=== PATIENT | female | born 1980 | race Two or more races ===

== ENCOUNTER 2018-09-05 12:17 | Emergency (ER) | payer BC, OTHER ==
[2018-09-05] MEDS ORDERED: ACETAMINOPHEN 1000 MG/100 ML VIAL (NON FORMULARY) IVPB ONE (12:28)
[2018-09-05] MEDS ORDERED: SODIUM CHLORIDE 1,000 ML IV STA (12:28)
[2018-09-05 12:30] VITALS: TEMP 98.3; BMI 25.8
--- NOTE | 2018-09-05 12:32 | PDOC ---
Rapid Medical Evaluation Chief Complaint: Pain Time Seen by Provider: 09/05/18 12:27 Medical Evaluation: Allergies Allergy/AdvReac Type Severity Reaction Status Date / Time No Known Allergies Allergy Verified 09/05/18 12:23 09/05/18 12:30 I have performed a brief in-person evaluation of this patient. The patient presents with a chief complaint of: epigastric pain after trip to [place]. 7wks . 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 Discharge Disposition - Diagnosis Abdominal pain - Referrals - Patient Instructions - Post Discharge Activity
[2018-09-05] MEDS ORDERED: ACETAMINOPHEN INJECTION 100 ML IVPB ONE (12:36)
[2018-09-05] MEDS ORDERED: MAG HYDROX/AL HYDROX/SIMETH 30 ML UNIT-DOSE CUP PO ONE (13:13)
[2018-09-05 13:21] LABS: BASO % 0.4 % (0-2.0); EOS % 2.1 % (0-4.5); HEMATOCRIT 39.4 % (32.4-45.2); HEMOGLOBIN 13.2 GM/dL (10.7-15.3); LYMPH % 34.1 % (8-40); MCHC 33.6 g/dl (32.0-36.0); MEAN CELL VOLUME 86.2 fl (80-96); MEAN PLT VOLUME 7.1 fl (7.5-11.1); MONO % 7.7 % (3.8-10.2); NEUT % 55.7 % (42.8-82.8); PLATELET COUNT 288 K/MM3 (134-434); RBC 4.57 M/mm3 (3.60-5.2); WHITE BLOOD COUNT 3.9 K/mm3 (4.0-10.0)
[2018-09-05 13:58] LABS: ALBUMIN 3.4 g/dl (3.4-5.0); BILIRUBIN,TOTAL 0.3 mg/dL (0.2-1); BLOOD UREA NITROGEN 7.2 mg/dL (7-18); CREATININE 0.6 mg/dL (0.55-1.3); POTASSIUM 4.3 mmol/L (3.5-5.1); TOT PROT 6.2 g/dl (6.4-8.2)
[2018-09-05] MEDS ORDERED: PYRIDOXINE HCL (B-6) 50 MG TABLET (FP) PO ONE (14:23)
[2018-09-05 14:34] LABS: PH,URINE 7.5 (5.0-8.0); URINE APPEARANCE CLEAR; URINE BILIRUBIN NEGATIVE (NEGATIVE); URINE COLOR YELLOW; URINE GLUCOSE (UA) NEGATIVE (NEGATIVE); URINE KETONE NEGATIVE (NEGATIVE); URINE LEUK ESTERASE NEGATIVE (NEGATIVE); URINE NITRITE NEGATIVE (NEGATIVE); URINE PROTEIN NEGATIVE (NEGATIVE); URINE UROBILINOGEN 0.2 mg/dL (0.2-1.0)
[2018-09-05 15:39] VITALS: BP 110/68; PULSE 56
--- NOTE | 2018-09-05 16:16 | PDOC ---
Documentation entered by Carin Harris SCRIBE, acting as scribe for Eli Arriaga MD. Eli Arriaga MD: This documentation has been prepared by the Kimberly wade Mackenzie, SCRIBE, under my direction and personally reviewed by me in its entirety. I confirm that the documentation accurately reflects all work , treatment, procedures, and medical decision making performed by me. History of Present Illness - General Chief Complaint: Pain Stated Complaint: 6 WKS/ ABD. PAIN Time Seen by Provider: 09/05/18 12:27 History Source: Patient Exam Limitations: No Limitations - History of Present Illness Initial Comments: The patient is a 37 year old 6 week () female with a significant past medical history of an intrauterine fibroid who presents to the emergency department with 3 days of intermittent epigastric abdominal pain. Patient states the pain at times radiates to the right upper abdominal quadrant. She also reports poor appetite, nausea, fatigue, and alternating diarrhea and constipation (NB) for 2 weeks. She is concerned because she feels nauseous all day but thought "morning sickness" was only supposed to be in the morning. Denies vomiting. Patient returned from [place] 4 days ago and is concerned she caught something there and requests testing for it. Denies recent diarrhea. Last BM was yesterdya. She was seen by her primary doctor, Dr. Say Fitzgerald this week who referred her for GB ultrasound and TVUS. She states due to the persistence of the epigastric pain, she presented to the ED today. Denies lower abdominal pain or cramping. Denies vaginal bleeding or spotting. The patient denies chest pain, SOB. Denies fever, chills. Denies headache, focal weakness/numbness, dizziness Denies dysuria, frequency, urgency and hematuria. 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 No weakness. HEAD, EYES, EARS, NOSE AND THROAT: No change in vision. No ear pain or discharge. No sore throat. CARDIOVASCULAR: No chest pain or shortness of breath. RESPIRATORY: No cough, wheezing, or hemoptysis. GASTROINTESTINAL:(+)Epigastric pain. (+)Diarrhea. (+)Constipation. No nausea or vomiting. GENITOURINARY: No dysuria, frequency, or change in urination. MUSCULOSKELETAL: No joint or muscle swelling or pain. No neck/back pain. SKIN: No rash NEUROLOGIC: No headache, vertigo, loss of consciousness, or change in strength/ sensation. ENDOCRINE: No increased thirst. HEMATOLOGIC/LYMPHATIC: No anemia, easy bleeding, or history of blood clots. ALLERGIC/IMMUNOLOGIC: No hives or skin allergy. *Physical Exam - Vital Signs Last Vital Signs Temp Pulse Resp BP Pulse Ox 98.3 F 83 20 109/71 100 09/05/18 12:23 09/05/18 12:23 09/05/18 12:23 09/05/18 12:23 09/05/18 12:23 - Physical Exam Comments: 09/05/18 15:56 GENERAL: Awake, alert, and fully oriented, in no acute distress HEAD: No signs of trauma EYES: EOMI, sclera anicteric, conjunctiva clear ENT: Oropharynx clear without exudates. Moist mucosa NECK: Normal ROM, supple, no lymphadenopathy, JVD, or masses LUNGS: Breath sounds equal, clear to auscultation bilaterally. No wheezes, and no crackles HEART: Regular rate and rhythm, normal S1 and S2, no murmurs, rubs or gallops ABDOMEN: Soft, mild epigastric and RUQ ttp, no murphys sign, normoactive bowel sounds. No guarding, no rebound. No masses EXTREMITIES: Normal range of motion, no edema. No clubbing or cyanosis. No cords, erythema, or tenderness. WWP NEUROLOGICAL: Normal speech, cranial nerves intact, equal strength and sensation b/l SKIN: Warm, Dry, normal turgor, no rashes or lesions noted. Heart Score/ECG Review #1 09/05/18 16:01 Twelve-lead EKG was performed and reviewed by me. Normal sinus rhythm, rate 68. Normal axis with sinus arrhthmia 2/2 resp variation. No SAVANAH or [facility] ED Treatment Course - LABORATORY CBC & Chemistry Diagram: 09/05/18 13:00 09/05/18 13:00 - ADDITIONAL ORDERS Additional order review: Laboratory Results 09/05/18 09/05/18 09/05/18 13:50 13:00 13:00 Sodium 140 Potassium 4.3 Chloride 111 H Carbon Dioxide 27 Anion Gap 2 L BUN 7.2 Creatinine 0.6 Est GFR (CKD-EPI)AfAm 135.91 Est GFR (CKD-EPI)NonAf 117.26 Random Glucose 87 Calcium 9.0 Total Bilirubin 0.3 AST 14 L ALT 17 Alkaline Phosphatase 35 L Total Protein 6.2 L Albumin 3.4 Lipase 193 Beta HCG, Quant 42569.8 Urine Color Yellow Urine Appearance Clear Urine pH 7.5 Ur Specific [place] 1.011 Urine Protein Negative Urine Glucose (UA) Negative Urine Ketones Negative Urine Blood Negative Urine Nitrite Negative Urine Bilirubin Negative Urine Urobilinogen 0.2 Ur Leukocyte Esterase Negative Blood Type O POSITIVE Antibody Screen Negative 09/05/18 13:00 RBC 4.57 MCV 86.2 MCHC 33.6 RDW 13.0 MPV 7.1 L Neutrophils % 55.7 Lymphocytes % 34.1 Monocytes % 7.7 Eosinophils % 2.1 Basophils % 0.4 - Medications Given in the ED: ED Medications Discontinued Medications Generic Name Dose Route Start Last Admin Trade Name Kieran PRN Reason Stop Dose Admin Acetaminophen 1,000 mg 09/05/18 12:28 09/05/18 13:07 Ofirmev Injection - IVPB 09/05/18 12:29 1,000 mg ONCE ONE Administration Sodium Chloride 1,000 mls @ 1,000 mls/hr 09/05/18 12:28 09/05/18 13:07 Normal Saline - IV 09/05/18 13:27 1,000 mls/hr ASDIR STA Administration Medical Decision Making - Medical Decision Making 09/05/18 16:13 37yo F currently 6 weeks presents to the ED with epigastric pain, nausea, fatigue, anorexia, and alternating constipation and diarrhea. Vitals wnl Exam with epigastric and RUQ ttp Labs wnl, B-HCG consistent with 6-8 week GB US unremarkable No fevers, systemic signs of infection Likely gastritis and sxs consistent with first trimester Pt is well appearing, requesting to eat states she is hungry Feeling better She has f/u with OB next week She is clinically stable for DC home I discussed the physical exam findings, ancillary test results and final diagnoses with the patient. I answered all of the patient's questions. The patient was satisfied with the care received and felt comfortable with the discharge plan and treatment plan. The patient will call their primary care physician within 24 hours to arrange follow-up and will return to the Emergency Department with any new, persistent or worsening symptoms. *DC/Admit/Observation/Transfer Diagnosis at time of Disposition: Abdominal pain, Anorexia, Diarrhea - Discharge Dispostion Disposition: HOME Condition at time of disposition: Improved Decision to Admit order: No - Prescriptions Prescriptions: Pyridoxine HCl (Vitamin B6) [Vitamin B-6] 25 mg PO Q6H PRN #20 tablet PRN Reason: Nausea - Referrals Referrals: Say Fitzgerald MD [Primary Care Provider] - - Patient Instructions Printed Discharge Instructions: Medications and , Diet, DI for -- Discomforts and Remedies, DI for Abdominal Pain -- Early Additional Instructions: Your blood work and ultrasound of your abdomen today were normal. Your B-HCG level was at the level expected for a 6-8 week . Follow up with your [facility] doctor next week as scheduled. Take your multivitamin daily. For nausea, I have prescribed Vitamin B6 which you can take as needed for epigastric discomfort, nausea and poor appetite Try to eat small, frequent meals throughout the day as opposed to large meals. Return to the emergency department if you have any new, worsening your concerning symptoms. It was a pleasure to take care of you in the emergency department today, we hope you feel better soon! -Dr. Arriaga - Post Discharge Activity - Attestations Physician Attestion: 09/05/18 15:44 I, Dr. Eli Arriaga MD, attest that this document has been prepared under my direction and personally reviewed by me in its entirety. I further attest, that it accurately reflects all work, treatment, procedures and medical decision -making performed by me.
--- NOTE | 2018-09-06 08:14 | EKG ---
Test Reason : Blood Pressure : / mmHG Vent. Rate : 068 BPM Atrial Rate : 068 BPM P-R Int : 152 ms QRS Dur : 092 ms QT Int : 382 ms P-R-T Axes : 075 069 054 degrees QTc Int : 406 ms NORMAL SINUS RHYTHM WITH SINUS ARRHYTHMIA NORMAL ECG NO PREVIOUS ECGS AVAILABLE Confirmed by DEVONTE MCLAUGHLIN, ALYSSA ([id number]) on 09/06/2018 8:14:26 AM Referred By: Confirmed By:ALYSSA WHITNEY MD
== END 2018-09-05 15:57 | disposition home or self-care (01) ==
LOC: JER 12:17
PROC: 3E033GC Introduction of Other Therapeutic Substance into Peripheral Vein, Percutaneous Approach (ICD-10-PCS; principal; 2018-09-05)
DX: O26.891 Other specified pregnancy related conditions, first trimester (principal); R10.13 Epigastric pain; F50.89 Other specified eating disorder; Z3A.01 Less than 8 weeks gestation of pregnancy
CPT/HCPCS: 36415; 76705-TC; 80053; 81003; 83690; 84702; 85025; 86850; 86900; 86901; 87086; 93005; 93010; 99282-25; J0131; J7030

== ENCOUNTER 2019-03-16 08:07 | Inpatient (IN) | payer BC, OTHER ==
[2019-03-16 09:51] VITALS: BMI 35.7
[2019-03-16] MEDS ORDERED: morphine SULFATE/PF 0.5 MG/ML (2cc Syringe - QUVA) ONE (10:23)
--- NOTE | 2019-03-16 10:32 | HP ---
Past Medical History - Primary Care Physician PCP:: Bonilla Browning - Admission Chief Complaint: 38yo P0 with pregancy at EGA 34w4d admitted for primary C/S delivery due to IUGR. 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: Alzheimer's, CVA, Dementia, Migraine, Multiple Sclerosis, Peripheral Neuropathy, Parkinson's, Seizure, Syncope, TIA, Vertigo, Other Cardiovascular: No: AFIB, Aneurysm, Aortic Insufficiency, Aortic Stenosis, CAD, CHF, Deep Vein Thrombosis, HTN, Hyperlipdemia, AL, Mitral Insufficiency, Mitral Stenosis, Murmur, Pulmonary Hypertension, Other Pulmonary: No: Asthma, Bronchitis, Cancer, COPD, O2 Dependent, Pneumonia, Previously Intubated, Pulmonary Embolus, Pulmonary Fibrosis, Sleep Apnea, Other Gastrointestinal: No: Ascites, Cancer, Constipation, Crohn's Disease, Diverticulitis, Diverticulosis, Esophageal Varices, Gastritis, GERD, GI Bleed, Hemorrhoids, Hiatal Hernia, Inflamatory Bowel Disease, Irritable Bowel Disease, Pancreatitis, Peptic Ulcer Disease, Ulcerative Colitis, Other Hepatobiliary: No: Cirrhosis, Cholelithiasis, Cholecystitis, Choledocholithiasis , Hepatitis A, Hepatitis B, Hepatitis C, Other Renal/: No: Renal Failure, Renal Inusuff, BPH, Cancer, Hematuria, Hemodialysis , Neurogenic Bladder, Renal Calculi, UTI, Other Reproductive: Yes: Fibroids ...: 1 ...Para: 0 ...Term: 0 ...: 0 ...Spon : 0 ...Induced : 0 ...Multiple Gestation: 0 ... Weeks Gestation by Dates: 34.4 ...EDC by Dates: 04/23/19 Heme/Onc: No: Anemia, B12 Deficiency, Bleeding Disorder, Cancer, Current Chemotherapy, Current Radiation Therapy, Hemochromatosis, Hypercoaguable State, Myeloproliferative Synd, Sickle Cell Disease, Sickle Cell Trait, Thrombocytopenia, Other Infectious Disease: No: AIDS, C-Diff, Herpes Zoster, HIV, MRSA, STD's, Tuberculosis, VREF, Other Psych: No: Addictions, Anxiety, Bipolar, Depression, Panic, Psychosis, Schizophrenia, Other Musculoskeletal: No: Bursitis, Chronic low back pain, Hemiparesis, Hemiplegia, Osteoarthritis, Paraplegia, Other Rheumatology: No: Fibromyalgia, Gout, Lupus, Rheumatoid Arthritis, Sarcoidosis, Vasculitis, Other ENT: No: Allergic Rhinitis, Sinusitis, Other Endocrine: No: Jf's Disease, Kody's Disease, Diabetes Insipidus, Diabetes Mellitus, Hyperparathyroidism, Hyperthyroidism, Hypothyroidism, Osteopenia, SIADH, Other Dermatology: No: Basal Cell, Cellulitis, Eczema, Melanoma, Psoriasis, Squamous Cell, Other - Past Surgical History Past Surgical History: Yes: None Hx Myomectomy: No Hx Transabdominal Cerclage: No - Advance Directives Advance Directives: No: Living Will, Health Care Proxy, DNR, Organ Donor, Tissue Donor, MOLST - Smoking History Smoking history: Never smoked Have you smoked in the past 12 months: No - Alcohol/Substance Use Hx Alcohol Use: No History of Substance Use: reports: None - Social History Usual Living Arrangement: Yes: With Spouse Do you think of yourself as: Straight/Heterosexual ADL: Independent 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 History of Recent Travel: No Home Medications - Allergies Allergies/Adverse Reactions: Allergies Allergy/AdvReac Type Severity Reaction Status Date / Time No Known Allergies Allergy Verified 03/16/19 09:31 - Home Medications Home Medications: Ambulatory Orders Vit No.129/Iron/Folic [ One Daily Tablet] 1 tab PO DAILY Family Medical History Family History: Unremarkable Review of Systems - Review of Systems Constitutional: reports: No Symptoms Eyes: reports: No Symptoms HENT: reports: No Symptoms Neck: reports: No Symptoms Cardiovascular: reports: No Symptoms Respiratory: reports: No Symptoms Gastrointestinal: reports: No Symptoms Genitourinary: reports: No Symptoms Breasts: reports: No Symptoms Reported Musculoskeletal: reports: No Symptoms Integumentary: reports: No Symptoms Neurological: reports: No Symptoms Endocrine: reports: No Symptoms Hematology/Lymphatic: reports: No Symptoms Psychiatric: reports: No Symptoms Pain Intensity: 0 Physical Exam - Maternity Constitutional: Yes: No Distress, Calm, Obese Eyes: Yes: WNL, Conjunctiva Clear, EOM Intact HENT: Yes: WNL, Atraumatic, Normocephalic Neck: Yes: WNL, Supple, Trachea Midline Cardiovascular: Yes: WNL, Regular Rate and Rhythm Breast(s): Yes: WNL - Abdominal Exam/OB Fundal Height: 36 Number of Fetuses: Single Presentation: Vertex Contractions: No Intensity: Unaware Monitor Mode: External Heart Rate (range): 135 Heart Rate Location: Midline Category: I Accelerations: Non-Uniform Decelerations: None - Vaginal Exam/OB Vaginal Bleediing: No Speculum Exam: No Dilatation (cm): 0 Effacement (%): 0 Amniotic Membrane Status: Intact Presentation: Vertex/Position Station: -4 - Physical Exam Musculoskeletal: Yes: WNL Extremities: Yes: WNL Edema: No Integumentary: Yes: WNL Deep Tendon Reflex Grade: Normal +2 ...Motor Strength: WNL Psychiatric: Yes: WNL, Alert, Oriented Hemorrhage Risk Assessment - Risk Factors Medium Risk Factors: Yes: Large myomas High Risk Factors: Yes: None Risk Score: 1 Risk Level: Medium Risk Imaging - Results Ultrasound: Report Reviewed Assessment/Plan 38yo P0 with pregancy at EGA 34w4d admitted for primary C/S delivery due to IUGR. MFM consulation to proceed with delivery. Pt completed a course of steroids. The decision was made to proceed with delivery by C/S due to IUGR and unfavorable cervical exam. We discussed the risks and benefits of C/S at length, including but not limited to scarring, pain, bleeding , infection, injury to underlying organs and structures, need for additional surgery to repair/treat any problems or complications, complications/ injuries, hysterectomy, myomectomy, etc. The pt verbalized her understanding and requested to proceed with surgery. The pt is aware that all surgeries have risks and no guarantees can be provided.
[2019-03-16] MEDS ORDERED: ELECTROLYTE-148 SOLN 1,000 ML IV SCH (10:45)
[2019-03-16] MEDS ORDERED: ONDANSETRON 4 MG/2 ML VIAL IVPUSH PRN (11:31)
[2019-03-16] MEDS ORDERED: WITCH HAZEL 50% (TUCKS) 40 PAD/JAR PAD TP PRN (12:18)
[2019-03-16] MEDS ORDERED: METHYLERGONOVINE MALEATE 0.2 MG/1 ML AMP IM PRN (12:18)
[2019-03-16] MEDS ORDERED: BENZOCAINE 20% 57 GM BOTTLE TP PRN (12:18)
[2019-03-16] MEDS ORDERED: IBUPROFEN 800 MG/8 ML IJ IVPB PRN (12:18)
--- NOTE | 2019-03-16 12:26 | OP ---
Operative Note - Note: Operative Date: 03/16/19 Pre-Operative Diagnosis: at EGA 34w4d. IUGR, AMA, maternal obesity, fibroids. Operation: Primary LT C/S Findings: Live baby boy in VTX presentation. No meconium in amniotic fluid. Nuchal cord x 2. A large fundal intramural myoma and 2 smaller posterior myomas. Normal FT's and ovaries Post-Operative Diagnosis: Same as Pre-op Surgeon: Bonilla Browning Organizational Consultant: Keisha Godoy Anesthesiologist/VENDING STAND SUPERVISOR: Erica Cao Anesthesia: Spinal Specimens Removed: Placenta Estimated Blood Loss (mls): 700 Drains & Tubes with Location: Weiss cath Drains, Volume Out (mls): 300 Blood Volume Replaced (mls): 0 Fluid Volume Replaced (mls): 1,400 Operative Report Dictated: Yes
[2019-03-16] MEDS: OXYTOCIN 20 UNITS in 0.9% NS 20 UNIT/1,000 ML INFUS.BAG IV SCH (12:35)
[2019-03-16] MEDS ORDERED: CEFAZOLIN 1 GM in DEXTROSE 5%-WATER - 50 ML IVPB SCH (18:00)
[2019-03-16] MEDS: CEFAZOLIN 1 GM/D5W 1 GM/50 ML BAG IVPB SCH (18:19)
--- NOTE | 2019-03-16 19:01 | OP ---
DATE OF OPERATION: 03/16/2019 PREOPERATIVE DIAGNOSIS: at estimated gestational age of 34 weeks and 4 days, intrauterine growth restriction, advanced maternal age, maternal obesity, uterine fibroids. POSTOPERATIVE DIAGNOSIS: at estimated gestational age of 34 weeks and 4 days, intrauterine growth restriction, advanced maternal age, maternal obesity, uterine fibroids. Delivered. PROCEDURE: Primary low transverse section via Pfannenstiel skin incision. SURGEON: Bonilla Browning MD. ANESTHESIOLOGIST: Keisha Godoy MD. ANESTHESIOLOGIST: Erica Cao DO. ANESTHESIA: Spinal. COMPLICATIONS: None. PATHOLOGY: Placenta. FINDINGS: Live baby boy in vertex presentation, no meconium in amniotic fluids, a nuchal cord wrapped around twice. There was a large fundal intramural myoma measuring approximately 8 to 10 cm as well as 2 smaller posterior myomas ranging from 2 to 3 cm. Normal fallopian tubes bilaterally. Normal ovaries bilaterally. ESTIMATED BLOOD LOSS: 700 mL. URINE OUTPUT: 300 mL of clear urine at the end of the procedure. INTRAVENOUS FLUIDS: 1400 mL. PROCEDURE: The patient was met preoperatively. Risks, benefits, and alternatives of surgery were discussed in detail. All questions were answered. The consent form was reviewed and patient verbalized her understanding. The consent form was signed, and the patient requested to proceed with the surgery. The patient was brought to the OR with the IV running. She was placed on the surgical table in a sitting position. The spinal anesthesia was placed without difficulty. The patient was then positioned on a surgical table in the supine position with leftward tilt. She was prepped and draped in the usual sterile fashion. A Weiss catheter was left to drain to gravity. A timeout procedure was conducted as per protocol. The surgeons then proceeded with the operation. A Pfannenstiel skin incision was made with the knife approximately 2 cm above the pubic symphysis. The incision was taken down to the level of fascia with the knife. The fascia was incised in the midline. The incision was extended bilaterally with [place] scissors. The fascia was then dissected away from the rectus muscles superiorly and inferiorly using sharp and blunt dissection. The rectus muscles were in the midline bluntly. The peritoneum was identified, tented up with 2 [place]ita clamps and entered sharply. The peritoneal incision was then extended superiorly and inferiorly. The bladder peritoneum was dissected away from the lower uterine segment. The bladder was dissected away from the lower uterine segment using sharp and blunt dissection. The bladder was then reflected downwards using [place] retractor. The uterus was incised transversely in the lower uterine segment. The incision was then extended bilaterally. The baby was delivered from vertex presentation and without complications. The nuchal cord was released without difficulty. The umbilical cord was clamped and cut. The baby was crying spontaneously and was handed to the waiting upholstery estimator. A segment of the umbilical cord was secured for blood gas. The placenta was removed manually and without complications. The uterus was cleared of all clots and debris using laparotomy laps. The uterine incision was repaired using a 0 Biosyn suture with the running, locking stitch. Good hemostasis was noted. The uterine incision was then imbricated using a secondary layer of closure with a 0 Biosyn suture. Once again, good hemostasis was assured. The bladder peritoneum was then reapproximated using a 0 Biosyn suture. Once again, good hemostasis was confirmed. The operative site was irrigated using copious amounts of normal saline. Once the saline was aspirated, good hemostasis was confirmed. The parietal peritoneum was closed using a 2-0 chromic suture. The rectus muscles were approximated in the midline using several interrupted 2-0 chromic suture. The fascia was closed using a 0 Vicryl suture with a running stitch. Good hemostasis and approximation were confirmed. The subcutaneous adipose tissues and Jan fascia were approximated using several interrupted 2-0 chromic sutures. The skin was closed using a 4-0 Biosyn suture in a subcutaneous stitch. Sponge, lap, needle and instrument counts were correct. The patient was transferred to recovery room in stable condition. Fortino [id number]
[2019-03-17] MEDS: CEFAZOLIN 1 GM/D5W 1 GM/50 ML BAG IVPB SCH ×2 (02:06→09:29)
[2019-03-17] MEDS: OXYTOCIN 20 UNITS in 0.9% NS 20 UNIT/1,000 ML INFUS.BAG IV SCH (03:50)
[2019-03-17] MEDS: SIMETHICONE 80 MG TAB.CHEW (FP) PO PRN ×3 (05:26→16:49)
[2019-03-17] MEDS: IBUPROFEN 600 MG TABLET (FP) PO PRN ×3 (05:26→16:49)
--- NOTE | 2019-03-17 07:10 | PN ---
Post Progress Note - Subjective Subjective: Patient without acute complaints. Reports tolerating oral intake without nausea or vomiting. Ambulating without dizziness. Denies fevers or chills. Pain well controlled with oral pain medication. /Pumping without difficulty. Passing flatus. Type of Delivery: Primary C/S Vital Signs: Vital Signs Temperature 98.2 F 03/17/19 06:00 Pulse Rate 59 L 03/17/19 06:00 Respiratory Rate 18 03/17/19 06:00 Blood Pressure 131/78 03/17/19 06:00 O2 Sat by Pulse Oximetry (%) 99 03/16/19 13:10 Breast Exam: Yes: Soft Uterus: Yes: Fundus Firm Incision: Yes: Dressing dry and intact Abdomen/GI: Yes: Abdomen soft, Tolerating PO Lochia: Yes: Rubra Lochia, amount: Small Extremities: Yes: Calves non-tender Perineum: Yes: Intact Activity: Ambulating Assessment/Plan 38yo P1 no s/p 1' c/section for sever IUGR @ 34wks VSS, Afebrile h/h pending will follow Hemodynamically stable doing well cont. routine post-op care
[2019-03-17] MEDS: PRENATAL VITAMINS W/ FOLIC ACID TABLET (FP) PO SCH (09:30)
[2019-03-17] MEDS: ENOXAPARIN NA (PORCINE) 40 MG/0.4 ML DISP.SYRIN SQ SCH (09:30)
[2019-03-17 11:51] LABS: BASO % 0.3 % (0-2.0); EOS % 1.7 % (0-4.5); HEMATOCRIT 36.2 % (32.4-45.2); HEMOGLOBIN 12.3 GM/dL (10.7-15.3); MCH 29.2 pg (25.7-33.7); MCHC 33.9 g/dl (32.0-36.0); MEAN CELL VOLUME 86.1 fl (80-96); MEAN PLT VOLUME 7.7 fl (7.5-11.1); PLATELET COUNT 250 K/MM3 (134-434); RDW 13.2 % (11.6-15.6); WHITE BLOOD COUNT 7.8 K/mm3 (4.0-10.0)
[2019-03-17] MEDS: oxyCODONE HCL 5 MG TABLET PO PRN ×2 (11:52→16:50)
[2019-03-17] MEDS ORDERED: BISACODYL 10 MG SUPP.RECT RC PRN (12:18)
[2019-03-18] MEDS: oxyCODONE HCL 5 MG TABLET PO PRN ×3 (01:40→14:38)
[2019-03-18] MEDS: SIMETHICONE 80 MG TAB.CHEW (FP) PO PRN ×3 (01:40→14:38)
[2019-03-18] MEDS: IBUPROFEN 600 MG TABLET (FP) PO PRN ×3 (01:41→14:38)
[2019-03-18] MEDS: PRENATAL VITAMINS W/ FOLIC ACID TABLET (FP) PO SCH (09:52)
[2019-03-18] MEDS: ENOXAPARIN NA (PORCINE) 40 MG/0.4 ML DISP.SYRIN SQ SCH (09:52)
--- NOTE | 2019-03-18 14:52 | PATH ---
Surgical Pathology Report Patient Name: SY SUTTON Med. Rec. #: [id number] /Age/Gender: 1980 (Age: 38) / F Account: [id number] Location: [facility] OBS/POPULATION HEALTH COACH Taken: 03/16/2019 Received: 03/17/2019 Reported: 03/18/2019 Physicians: Bonilla Browning M.D. Specimen(s) Received PLACENTA Clinical History , 34.4 weeks Primary for IUGR Final Diagnosis PLACENTA: THIRD TRIMESTER PLACENTA (163 G), SMALL FOR GESTATIONAL AGE. TRIVASCULAR CORD. MEMBRANES WITH NO DIAGNOSTIC ABNORMALITIES. Electronically Signed Rashi Marquez M.D. Gross Description The specimen is received fresh labeled placenta and is a 163 gram, 12.0 x 9.5 x 1.7 cm. placenta with attached membranes and umbilical cord. The attached membranes are luke, translucent with focal opacities and insert marginally. The umbilical cord measures 12 cm. in length and averages 0.8 cm. in diameter. The cord inserts eccentrically, 1.5 cm. to the nearest margin. No true knots or strictures are identified. Cut surface of the umbilical cord reveals 3 vessels. The surface is orta-blue with minimal fibrin deposition and appropriate caliber vessels. The maternal surface is red-brown and intact. Sectioning reveals red-brown, spongy parenchyma. No lesions are identified. Computer Systems Technology Instructor sections are submitted in three cassettes as follows: 1- membrane rolls and umbilical cord; 2-3- full thickness sections of placenta. /03/17/2019 saudi03/17/2019
--- NOTE | 2019-03-18 15:47 | PN ---
Post Progress Note - Subjective Subjective: Patient without acute complaints. Reports tolerating oral intake without nausea or vomiting. Ambulating without dizziness. Denies fevers or chills. Pain well controlled with oral pain medication. Breast pumping without difficulty. Passing flatus and BM. Post Day: 2 Type of Delivery: Primary C/S Vital Signs: Vital Signs Temperature 98.4 F 03/18/19 09:00 Pulse Rate 77 03/18/19 09:00 Respiratory Rate 20 03/18/19 09:00 Blood Pressure 142/79 03/18/19 09:00 O2 Sat by Pulse Oximetry (%) 99 03/16/19 13:10 Breast Exam: Yes: Soft Uterus: Yes: Fundus Firm, Fundus below umbilicus, Non-tender Incision: Yes: Sutures intact Abdomen/GI: Yes: Abdomen soft, Passing flatus, Tolerating PO Lochia: Yes: Rubra Lochia, amount: Small Extremities: Yes: Calves non-tender Perineum: Yes: Intact Activity: Ambulating - Labs Labs: CBC WBC 7.8 K/mm3 (4.0-10.0) 03/17/19 11:00 RBC 4.20 M/mm3 (3.60-5.2) 03/17/19 11:00 Hgb 12.3 GM/dL (10.7-15.3) 03/17/19 11:00 Hct 36.2 % (32.4-45.2) 03/17/19 11:00 MCV 86.1 fl (80-96) 03/17/19 11:00 MCH 29.2 pg (25.7-33.7) 03/17/19 11:00 MCHC 33.9 g/dl (32.0-36.0) 03/17/19 11:00 RDW 13.2 % (11.6-15.6) 03/17/19 11:00 Plt Count 250 K/MM3 (134-434) 03/17/19 11:00 MPV 7.7 fl (7.5-11.1) 03/17/19 11:00 Absolute Neuts (auto) 5.8 K/mm3 (1.5-8.0) 03/17/19 11:00 Neutrophils % 75.0 % (42.8-82.8) 03/17/19 11:00 Lymphocytes % 18.0 % (8-40) D 03/17/19 11:00 Monocytes % 5.0 % (3.8-10.2) 03/17/19 11:00 Eosinophils % 1.7 % (0-4.5) D 03/17/19 11:00 Basophils % 0.3 % (0-2.0) 03/17/19 11:00 Nucleated RBC % 0 % (0-0) 03/17/19 11:00 Assessment/Plan 38yo P1 s/p primary LT C/S for IUGR. The pt is asymptomatic for s/sxs of anemia. care instructions reviewed. Continue routine postop care. Ambulation encouraged.
--- NOTE | 2019-03-18 15:56 | DS ---
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 Vital Signs: Vital Signs Temperature 98.4 F 03/18/19 09:00 Pulse Rate 77 03/18/19 09:00 Respiratory Rate 03/18/19 09:00 Blood Pressure 142/79 03/18/19 09:00 O2 Sat by Pulse Oximetry (%) 99 03/16/19 13:10 Constitutional: Yes: Well Nourished, No Distress, Calm Eyes: Yes: WNL, Conjunctiva Clear, EOM Intact HENT: Yes: WNL, Atraumatic, Normocephalic Neck: Yes: WNL, Supple, Trachea Midline Cardiovascular: Yes: WNL, Regular Rate and Rhythm Respiratory: Yes: WNL, Regular, CTA Bilaterally Gastrointestinal: Yes: WNL, Normal Bowel Sounds, Soft, Abdomen, Obese ...Rectal Exam: Yes: Deferred Renal/: Yes: WNL External Genitalia: Yes: Normal Internal Exam Deferred: Yes ....Post : Yes: Uterus firm, Uterus non-tender, Slight lochia rubra Breast(s): Yes: WNL Musculoskeletal: Yes: WNL Extremities: Yes: WNL Edema: No Integumentary: Yes: WNL Wound/Incision: Yes: Clean/Dry, Well Approximated, Sutures Intact, Steri Strips , Open to air Neurological: Yes: WNL, Alert, Oriented ...Motor Strength: WNL Psychiatric: Yes: WNL, Alert, Oriented Labs: CBC, BMP 03/17/19 11:00 Delivery - Delivery Section: Primary, Low Flap Transverse Type of Anesthesia: Spinal Episiotomy/Laceration: None EBL (cc): 700 Delivery, Single - Stages of Labor Date of Delivery: 03/16/19 Time of Delivery: 11:20 Time Placenta Delivered: 11:21 Placenta: Yes: Manual Removal, Normal Configuration - 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: Yes Name: Rashid Bolden Infant Gender: Male Weight: 1.559 kg Position: Right, OT Total Hours ROM (Hrs/Mins): 0Hrs/3Mins - 1 Minute Total Score: 8 5 Minutes Total Score: 9 - Feeding Plan Initial Plan: Exclusive throughout hospitalization Benefits of Exclusively reinforced: No Discharge Summary Problems reviewed: Yes Reason For Visit: SECTION IUGR, fibroid uterus, maternal obesity Procedures: Principal: Primary LT C/S Hospital Course: Normal post op recovery, normal postop recovery Plan of Treatment: Ambulation, pain management Condition: Good - Instructions Diet, Activity, Other Instructions: Physical activity Resume your normal everyday activity as tolerated no heavy lifting or exercise until seen by your surgeon. You may walk unlimited flower of and climb stairs. You may resume driving the car when you feel safe and comfortable behind the wheel. No sexual activity as instructed. Wound care If you have a bandage, leave it on, and keep dry for 48-72 hours. After that time discard the outer bandage. If they are tapes on the skin under the out of bandage leave them in place. They will peel off in the next 7 to 10 days. Do Not Peel them off. You may shower the day after surgery. If there are tapes present on the skin, you may shower over them. Diet There are no dietary restrictions. Eat healthy, high-fiber foods. Drink 6 to 8 glasses of liquid each day. This will assist in keeping your bowels are regular. Pain management You may take Tylenol or acetaminophen or Ibuprofen (for example, Motrin, Advil etc.) from my pain prescription medication is ordered should be taken as prescribed for moderate to severe pain. Call MD for any of the following: Severe pain not relieved by medication Fever of 101 or higher Excessive bleeding or drainage on dressing Inability to urinate Referrals: Maxx Mejía MD [Staff Physician] - Disposition: HOME - Home Medications Comprehensive Discharge Medication List: Ambulatory Orders Vit No.129/Iron/Folic [ One Daily Tablet] 1 tab PO DAILY Prescription Drug Monitoring Program (I-STOP) results: I-STOP not reviewed
[2019-03-18] MEDS ORDERED: SENNOSIDES/DOCUSATE COMBO (SENNA PLUS) TABLET (UD) PO PRN (22:37)
[2019-03-19] MEDS: SIMETHICONE 80 MG TAB.CHEW (FP) PO PRN ×2 (01:47→13:15)
[2019-03-19] MEDS: oxyCODONE HCL 5 MG TABLET PO PRN (01:47)
[2019-03-19] MEDS: IBUPROFEN 600 MG TABLET (FP) PO PRN ×2 (01:48→13:15)
--- NOTE | 2019-03-19 09:22 | PN ---
Post Progress Note - Subjective Subjective: Patient without acute complaints. Reports tolerating oral intake without nausea or vomiting. Ambulating without dizziness. Denies fevers or chills. Pain well controlled with oral pain medication. without difficulty. Passing flatus. Post Day: 3 Type of Delivery: Primary C/S Vital Signs: Vital Signs Temperature 99.2 F 03/18/19 21:02 Pulse Rate 89 03/18/19 21:02 Respiratory Rate 20 03/18/19 21:02 Blood Pressure 129/60 03/18/19 21:02 O2 Sat by Pulse Oximetry (%) 99 03/16/19 13:10 Breast Exam: Yes: Engorged Uterus: Yes: Fundus Firm, Fundus below umbilicus Incision: Yes: Sutures intact. No: Redness, Oozing Abdomen/GI: Yes: Abdomen soft, Tender (mild incisional), Passing flatus, Tolerating PO. No: Abdominal Distention Lochia: Yes: Rubra Lochia, amount: Small Extremities: Yes: Calves non-tender, Edema (trace) Activity: Ambulating - Labs Labs: CBC WBC 7.8 K/mm3 (4.0-10.0) 03/17/19 11:00 RBC 4.20 M/mm3 (3.60-5.2) 03/17/19 11:00 Hgb 12.3 GM/dL (10.7-15.3) 03/17/19 11:00 Hct 36.2 % (32.4-45.2) 03/17/19 11:00 MCV 86.1 fl (80-96) 03/17/19 11:00 MCH 29.2 pg (25.7-33.7) 03/17/19 11:00 MCHC 33.9 g/dl (32.0-36.0) 03/17/19 11:00 RDW 13.2 % (11.6-15.6) 03/17/19 11:00 Plt Count 250 K/MM3 (134-434) 03/17/19 11:00 MPV 7.7 fl (7.5-11.1) 03/17/19 11:00 Absolute Neuts (auto) 5.8 K/mm3 (1.5-8.0) 03/17/19 11:00 Neutrophils % 75.0 % (42.8-82.8) 03/17/19 11:00 Lymphocytes % 18.0 % (8-40) D 03/17/19 11:00 Monocytes % 5.0 % (3.8-10.2) 03/17/19 11:00 Eosinophils % 1.7 % (0-4.5) D 03/17/19 11:00 Basophils % 0.3 % (0-2.0) 03/17/19 11:00 Nucleated RBC % 0 % (0-0) 03/17/19 11:00 Assessment/Plan 38 yo POD # 3 s/p primary CD, afebrile, vital signs stable, doing well 1. Continue routine postoperative care. 2. Encourage ambulation and incentive spirometer use 3. Continue oral pain medication 4. Anticipate discharge home postoperative day #4
[2019-03-19 10:49] LABS: EOS % 2.2 % (0-4.5); HEMATOCRIT 35.6 % (32.4-45.2); LYMPH % 31.9 % (8-40); MCH 29.2 pg (25.7-33.7); MCHC 33.7 g/dl (32.0-36.0); MEAN CELL VOLUME 86.6 fl (80-96); MEAN PLT VOLUME 7.3 fl (7.5-11.1); MONO % 5.4 % (3.8-10.2); NEUT % 59.5 % (42.8-82.8); PLATELET COUNT 263 K/MM3 (134-434); RBC 4.11 M/mm3 (3.60-5.2); WHITE BLOOD COUNT 7.5 K/mm3 (4.0-10.0)
[2019-03-19] MEDS: PRENATAL VITAMINS W/ FOLIC ACID TABLET (FP) PO SCH (11:24)
[2019-03-19] MEDS: ENOXAPARIN NA (PORCINE) 40 MG/0.4 ML DISP.SYRIN SQ SCH (11:24)
--- NOTE | 2019-03-20 07:26 | PN ---
Progress Note (short form) - Note Progress Note: pod 4 doing well, no /o ,ambulating , had BM CBC, BMP 03/19/19 10:25 Last Vital Signs Temp Pulse Resp BP Pulse Ox 97.9 F 94 H 20 132/80 99 03/19/19 22:00 03/19/19 22:00 03/19/19 22:00 03/19/19 22:00 03/16/19 13:10 abdomen soft, no distension, no cva , incision dry, clean no calf tenderness plan ambulate , patient will boarding since her baby still in NICU
[2019-03-20] MEDS: ENOXAPARIN NA (PORCINE) 40 MG/0.4 ML DISP.SYRIN SQ SCH (10:31)
[2019-03-20] MEDS: IBUPROFEN 600 MG TABLET (FP) PO PRN ×2 (10:32→18:01)
[2019-03-20] MEDS: ACETAMINOPHEN 325 MG TABLET (FP) PO PRN ×2 (10:32→18:01)
[2019-03-20] MEDS: PRENATAL VITAMINS W/ FOLIC ACID TABLET (FP) PO SCH (10:32)
[2019-03-20] MEDS: SIMETHICONE 80 MG TAB.CHEW (FP) PO PRN ×2 (10:32→18:02)
[2019-03-20 13:37] VITALS: BP 137/71; PULSE 90; TEMP 98.9
== END 2019-03-20 19:00 | disposition home or self-care (01) | DRG 788 ==
LOC: JLDR 08:07 → J3W 14:09
PROVIDERS: ADMIT Obstetrics & Gynecology; ATTEND Obstetrics & Gynecology
PROC: 10D00Z1 Extraction of Products of Conception, Low, Open Approach (ICD-10-PCS; principal; 2019-03-16)
DX: O36.5930 Maternal care for other known or suspected poor fetal growth, third trimester, not applicable or unspecified (principal); O34.10 Maternal care for benign tumor of corpus uteri, unspecified trimester; Z3A.34 34 weeks gestation of pregnancy; Z37.0 Single live birth
CPT/HCPCS: 36415; 36600; 82803; 85025; 88307-TC

== ENCOUNTER 2021-02-24 12:12 | Emergency (ER) | payer BC, OTHER ==
[2021-02-24 12:38] VITALS: BP 136/92; PULSE 106; TEMP 98.5; BMI 30.6
[2021-02-24 14:57] LABS: BASO % 0.7 % (0-2.0); EOS % 0.5 % (0-4.5); HEMOGLOBIN 13.3 GM/dL (10.7-15.3); LYMPH % 49.2 % (8-40); MCH 28.3 pg (25.7-33.7); MCHC 32.6 g/dl (32.0-36.0); MEAN CELL VOLUME 86.9 fl (80-96); MONO % 14.5 % (3.8-10.2); NEUT % 35.1 % (42.8-82.8); PLATELET COUNT 388 10^3/uL (134-434); RBC 4.72 M/mm3 (3.60-5.2); RDW 12.7 % (11.6-15.6); WHITE BLOOD COUNT 3.2 K/mm3 (4.0-10.0)
[2021-02-24 15:24] LABS: EPI CELLS 7 /uL (0-25.1); HYALINE CASTS 0 /uL (0-3.1); URINE APPEARANCE CLEAR; URINE BACTERIA 115 /uL (0-1359); URINE BILIRUBIN NEGATIVE (NEGATIVE); URINE COLOR YELLOW; URINE GLUCOSE (UA) NEGATIVE (NEGATIVE); URINE KETONE NEGATIVE (NEGATIVE); URINE LEUK ESTERASE NEGATIVE (NEGATIVE); URINE NITRITE NEGATIVE (NEGATIVE); URINE PROTEIN NEGATIVE (NEGATIVE); URINE RBC 10 /uL (0-23.9); URINE UROBILINOGEN 0.2 mg/dL (0.2-1.0); URINE WBC 6 /uL (0-25.8)
== END 2021-02-24 17:51 | disposition home or self-care (01) ==
LOC: JER 12:12
DX: O20.9 Hemorrhage in early pregnancy, unspecified (principal); Z3A.01 Less than 8 weeks gestation of pregnancy
CPT/HCPCS: 36415; 76817-TC; 81003; 84702; 85025; 86850; 86900; 86901; 87086; 99284-25

== ENCOUNTER 2021-02-27 11:07 | Emergency (ER) | payer BC, OTHER ==
[2021-02-27 11:39] VITALS: BP 118/81; PULSE 73; TEMP 98.2; BMI 30.4
[2021-02-27 13:45] LABS: EOS % 3.4 % (0-4.5); HEMATOCRIT 42.6 % (32.4-45.2); HEMOGLOBIN 13.9 GM/dL (10.7-15.3); LYMPH % 48.1 % (8-40); MCH 28.2 pg (25.7-33.7); MCHC 32.7 g/dl (32.0-36.0); MEAN CELL VOLUME 86.5 fl (80-96); MEAN PLT VOLUME 6.9 fl (7.5-11.1); MONO % 6.5 % (3.8-10.2); PLATELET COUNT 364 10^3/uL (134-434); RBC 4.93 M/mm3 (3.60-5.2); RDW 12.9 % (11.6-15.6); WHITE BLOOD COUNT 3.3 K/mm3 (4.0-10.0)
[2021-02-27 14:06] LABS: CALCIUM 9.3 mg/dL (8.5-10.1)
[2021-02-27 14:07] LABS: ALBUMIN 3.6 g/dl (3.4-5.0); BLOOD UREA NITROGEN 11.1 mg/dL (7-18)
[2021-02-27 14:10] LABS: CREATININE 0.6 mg/dL (0.55-1.3)
[2021-02-27 14:11] LABS: BILIRUBIN,TOTAL 0.3 mg/dL (0.2-1); TOT PROT 7.2 g/dl (6.4-8.2)
[2021-02-27 15:38] LABS: EPI CELLS 22 /uL (0-25.1); HYALINE CASTS 1 /uL (0-3.1); URINE APPEARANCE CLEAR; URINE BACTERIA 736 /uL (0-1359); URINE BILIRUBIN NEGATIVE (NEGATIVE); URINE COLOR YELLOW; URINE GLUCOSE (UA) NEGATIVE (NEGATIVE); URINE KETONE 1+ (NEGATIVE); URINE LEUK ESTERASE TRACE (NEGATIVE); URINE NITRITE NEGATIVE (NEGATIVE); URINE PROTEIN TRACE (NEGATIVE); URINE RBC 565 /uL (0-23.9); URINE UROBILINOGEN 0.2 mg/dL (0.2-1.0); URINE WBC 21 /uL (0-25.8)
== END 2021-02-27 17:01 | disposition home or self-care (01) ==
LOC: JER 11:07
DX: O26.891 Other specified pregnancy related conditions, first trimester (principal); R10.9 Unspecified abdominal pain; Z3A.01 Less than 8 weeks gestation of pregnancy
CPT/HCPCS: 36415; 76830-TC; 80053; 81003; 84702; 85025; 86850; 86900; 86901; 99284-25; C9803; U0003; U0005

== ENCOUNTER 2023-05-22 22:20 | Emergency (ER) | payer OTHER, BC ==
[2023-05-22 22:39] VITALS: BP 141/85; PULSE 92; RESP 18; TEMP 98.5; BMI 26.7
[2023-05-22 23:46] LABS: PH,URINE 6.5 (5.0-8.0); URINE APPEARANCE CLEAR; URINE BILIRUBIN NEGATIVE (NEGATIVE); URINE COLOR YELLOW; URINE GLUCOSE (UA) NEGATIVE (NEGATIVE); URINE KETONE NEGATIVE (NEGATIVE); URINE LEUK ESTERASE NEGATIVE (NEGATIVE); URINE NITRITE NEGATIVE (NEGATIVE); URINE PROTEIN NEGATIVE (NEGATIVE)
[2023-05-22 23:47] LABS: MCH 28.3 pg (25.7-33.7); MCHC 34.1 g/dl (32.0-36.0); MEAN CELL VOLUME 83.2 fl (80-96); MEAN PLT VOLUME 6.4 fl (7.5-11.1); PLATELET COUNT 381 10^3/uL (134-434); RBC 4.93 M/mm3 (3.60-5.2); RDW 12.7 % (11.6-15.6); WHITE BLOOD COUNT 5.4 K/mm3 (4.0-10.0)
[2023-05-23 00:05] LABS: POTASSIUM 4.1 mmol/L (3.5-5.1)
[2023-05-23 00:08] LABS: ANISOCYTOSIS 0; CALCIUM 10.1 mg/dL (8.5-10.1); MACROCYTOSIS 0
[2023-05-23 00:09] LABS: ALBUMIN 3.9 g/dl (3.4-5.0); BLOOD UREA NITROGEN 17.8 mg/dL (7-18)
[2023-05-23 00:12] LABS: CREATININE 0.6 mg/dL (0.55-1.3)
[2023-05-23 00:13] LABS: BILIRUBIN,TOTAL 0.2 mg/dL (0.2-1); TOT PROT 7.2 g/dl (6.4-8.2)
[2023-05-23] MEDS ORDERED: ACETAMINOPHEN 500 MG TABLET (FP) ONE (03:00)
[2023-05-23] MEDS: ACETAMINOPHEN 500 MG TABLET (FP) PO ONE (03:05)
[2023-05-23] MEDS ORDERED: SUCRALFATE 1 GM TABLET (FP) ONE (03:13)
[2023-05-23] MEDS: SUCRALFATE 1 GM/10 ML UNIT DOSE CUPS PO ONE (03:36)
== END 2023-05-23 06:21 | disposition home or self-care (01) ==
LOC: JER 22:20
DX: R10.12 Left upper quadrant pain (principal)
CPT/HCPCS: 36415; 71045-TC-FY; 74177-TC; 76700-TC; 80053; 81003; 82550; 84484; 84703; 85025; 87086; 93005; 93010; 99285-25